=== PATIENT | male | born 1970 | race Caucasian/White ===

== ENCOUNTER → 2018-05-23 | Outpatient (CLI) | payer BC, OTHER ==
--- NOTE | 2018-05-23 16:44 | RAD ---
EXAM DESCRIPTION: Barium Swallow: Rad-Fluoroscopy. CLINICAL HISTORY: DYSPHAGIA COMPARISON: None TECHNIQUE: The patient swallowed barium pill with water under fluoroscopic visualization. The patient swallowed gas-producing granules, water, and heavy density barium under fluoroscopic visualization. The images were obtained with the patient standing and prone. Patient drank medium density barium through a straw in the semi-prone position. 62 fluoroscopic cine loop images. 14 static fluoroscopic images. Total fluoroscopy time was 2.6 minutes. DAP: 26.02 Gy-cm2.. 151.4 mGy. FINDINGS: Patient swallowed the barium pill under fluoroscopic visualization with small gallbladder and the peel stopped at approximately the level of the aortic arch. With a second swallow of water, the pill coursed inferiorly to the stomach. The swallowing mechanism was unremarkable with no evidence of aspiration. Minimal narrowing of the esophagus by mass effect from the aortic arch but mucosal pattern is unremarkable. Minimal delay in passage of contrast through this segment. In the distal esophagus, an intraluminal monitor/camera is visible just above the hiatal hernia. The hiatal hernia changes size with minimal gastroesophageal reflux. Valsalva maneuver and coughing change the size of the hilum hernia, but do not increased the degree of reflux. Schatzki's ring visualized inferior to the monitor/camera at the upper extent of the hernia. Stomach well distended with gas and contrast material with no mass effect or intrinsic mucosal lesions. Included duodenal bulb and proximal duodenum with no mass effect or intrinsic mucosal lesions. IMPRESSION: 1. Swallowing mechanism is grossly normal with no aspiration. 2. Minimal delay in passage of contrast and barium pill through the mid esophagus where the aortic arch impresses on the esophagus. No definite mucosal lesions. 3. monitor/camera is noted within the lumen above the hiatal hernia. 4. Small hiatal hernia changes size with Valsalva maneuver and coughing. Schatzki's ring at the superior margin of the hernia inferior to the monitor. No mucosal lesions or mass effect. Electronically signed by: Suhas Pizano MD 05/23/2018 4:43 PM EMAIL OPERATIONS MANAGER
== END ==
LOC: RAD 08:03
PROVIDERS: ATTEND Internal Medicine Gastroenterology
DX: R13.10 Dysphagia, unspecified (principal); K44.9 Diaphragmatic hernia without obstruction or gangrene

== ENCOUNTER → 2019-02-21 | Outpatient (CLI) | payer OTHER ==
--- NOTE | 2019-02-21 14:01 | MRI ---
EXAM DESCRIPTION: MRI left hip CLINICAL HISTORY: Left hip pain. No known injury COMPARISON: None. TECHNIQUE: Multiplanar, multisequence MR images of the left hip FINDINGS: Nonspherical anterior superior femoral head neck junction predisposing to femoroacetabular impingement. Osseous bump without impingement related cystic change or edema anteriorly. Tear of the anterior to anterior superior labrum. Cleft of high signal intensity along the base of the anterior labrum from mid anterior to anterior superior with blunting of the anterior superior labrum. Findings best appreciated on axial PD series 701 images 13-18 and coronal series 601 image 6-8 Superior lateral labrum intact. Intralabral signal posterior superior with sublabral acetabular osteophyte. Region of osseous edema posterior superior femoral head radiating into the lateral femoral neck. The edema originates posterior femoral head over about 1.4 cm. Joint space narrowing of the posterior hip best appreciated on sagittal PD series 501 image 15-18. A small focus of edema in the posterior column acetabulum/ischium junction. This may originate from the margin of the central joint at the acetabular fossa. No linear trabecular abnormality. No full-thickness chondrosis over the weightbearing femoral head or acetabulum. Tendons and muscles around the left hip and elsewhere in the pelvis are normal No pelvic soft tissue mass lesion, adenopathy or free fluid Small joint effusion. No synovitis or intra-articular body IMPRESSION: Region of edema posterior femoral head radiating into the posterior lateral neck over small region. 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 Posterior joint space narrowing Nonspherical femoral head neck junction predisposing to femoroacetabular impingement. Tear of the anterior superior labrum Electronically signed by: Darvin Baldwin MD 02/21/2019 2:00 PM CDT
== END ==
LOC: MRI 09:21
PROVIDERS: ATTEND Family Medicine
DX: M25.852 Other specified joint disorders, left hip (principal); S73.192A Other sprain of left hip, initial encounter; M24.152 Other articular cartilage disorders, left hip

== ENCOUNTER 2019-02-26 05:39 | Day surgery (SDC) | payer OTHER ==
[2019-02-26] MEDS ORDERED: LIDOCAINE 1% 10 ML VIAL INJ ONE ×2 (10:00→11:23)
[2019-02-26] MEDS ORDERED: PROPOFOL 200 MG/20 ML VIAL IV ONE (10:00)
[2019-02-26] MEDS ORDERED: LACTATED RINGERS 1,000 ML ONE (10:39)
[2019-02-26] MEDS ORDERED: BUPIVACAINE 0.25% W/EPI 50 ML VIAL INJ ONE (11:22)
[2019-02-26] MEDS ORDERED: methylPREDNISolone ACETATE 80 MG/ML VIAL ONE (11:23)
[2019-02-26] MEDS ORDERED: LACTATED RINGERS 1,000 ML IVS ONE (12:15)
[2019-02-26 13:26] VITALS: BP 102/68; TEMP 97.6; O2SAT 97
--- NOTE | 2019-02-27 08:06 | OP ---
DATE OF PROCEDURE: 02/26/19 PREOPERATIVE DIAGNOSIS: 1. Impingement of the left hip. POSTOPERATIVE DIAGNOSIS: 1. Impingement of the left hip. PROCEDURE: 1. Intraarticular injection under anesthesia. SURGEON: Karl Cedeño MD. SUPERVISOR [employer]: Suahs Chavez CST, SA-C. ANESTHESIA: Conscious sedation. COMPLICATIONS: None. FINDINGS: Impingement of the left hip. INDICATION: Laurent has a history of pain associated with certain activities. The pain and physical exam are consistent with a diagnosis of femoroacetabular impingement. Because of the presence of his symptoms, an MRI was ordered which confirmed the diagnosis. Dr. Mancilla and I have talked about options and for him right now, he has elected to undergo injection. After discussing the risks, benefits and alternatives to that, the patient has given informed consent for the procedure. PROCEDURE: The patient was brought to the Operating Room and placed in supine position. Conscious sedation was administered and the leg was flexed, abducted and externally rotated. The groin was prepped and fluoroscopic imaging was used to confirm needle placement into the hip joint through a medial portal. Once placement had been confirmed, a combination of lidocaine and Depo-Medrol were injected into the joint. After injection, the needle was withdrawn. Pressure was held on the injection site. A sterile band-aid was placed. The patient was then taken back to the Day Surgery Unit. POSTOPERATIVE PLAN: The patient will be weight-bearing as tolerated and will followup with us in about 10 days. #[id number] MTDD
== END 2019-02-26 13:10 | disposition home or self-care (01) ==
LOC: AMB 05:39
PROVIDERS: ATTEND Orthopaedic Surgery
DX: M25.852 Other specified joint disorders, left hip (principal); M16.12 Unilateral primary osteoarthritis, left hip
CPT/HCPCS: 01200; 20610; 76000; J1030; J3490; J7120

== ENCOUNTER → 2019-03-12 | Outpatient (CLI) | payer OTHER ==
--- NOTE | 2019-03-12 15:47 | CT ---
EXAM DESCRIPTION: CT left hip CLINICAL HISTORY: Femoroacetabular impingement. Hip pain COMPARISON: MRI 02/21/2019 TECHNIQUE: Spiral CT with multiplanar reformatted images. This exam was performed according to our departmental dose-optimization program, which includes automated exposure control, adjustment of the mA and/or kV according to patient size and/or use of iterative reconstruction technique. FINDINGS: Acetabular osteophyte ridge superior lateral- posterior superior. Left hip joint space narrowing posteriorly best appreciated sagittal reformat images 62 through 67. Sclerosis along the posterior acetabular rim. Previous MRI demonstrated a region of marrow edema in the posterior lateral femoral head. Today's CT demonstrates joint space narrowing posterior lateral best appreciated on sagittal reformat image 63 through 68. Subchondral cortical with underlying trabecular condensation paralleling the cortex axial image 39, sagittal image 66. Region of involvement spans roughly 1.2 x 1.2 cm. Nonspherical anterior superior femoral head neck junction predisposing to femoroacetabular impingement. Osseous bump with shallow impingement trough. Alpha angle estimated at 65 degrees at the 1 to 2:00 position. Muscle volume loss and fatty infiltration proximal myotendinous junction of the rectus femoris compatible with a prior remote myotendinous injury. Normal tendon attachments to the pelvis. The other muscles and tendons around the left hip are normal No pelvic soft tissue mass lesion, adenopathy or free fluid IMPRESSION: Region of marrow edema seen on previous MRI in the posterior superior femoral head. Joint space narrowing posterior superior left hip joint. Subchondral cortical irregularity consistent with overlying grade 4 chondrosis. Trabecular condensation seen on today's CT, likely related to underlying trabecular stress reaction Electronically signed by: Darvin Baldwin MD 03/12/2019 3:45 PM CDT
== END ==
LOC: CT 13:30
PROVIDERS: ATTEND Orthopaedic Surgery
DX: M25.852 Other specified joint disorders, left hip (principal); M24.152 Other articular cartilage disorders, left hip